=== PATIENT | male | born 1985 | race African-American/Black ===

== ENCOUNTER 2017-11-23 19:54 | Emergency (ER) | payer OTHER, BC ==
[~2017-11-23] VITALS: Ht 185.4 cm; Wt 79.0 kg
[2017-11-23] MEDS ORDERED: FLEXERIL10 MG PO (21:38)
[2017-11-23 21:56] VITALS: BP 137/86
== END 2017-11-23 21:57 | disposition home or self-care (01) ==
LOC: EME 19:54
DX: S39.012A Strain of muscle, fascia and tendon of lower back, initial encounter (principal); V49.40XA Driver injured in collision with unspecified motor vehicles in traffic accident, initial encounter; Y92.410 Unspecified street and highway as the place of occurrence of the external cause
CPT/HCPCS: 99281; 99284